=== PATIENT | male | born 1950 | race Caucasian/White ===

== ENCOUNTER 2017-01-26 08:56 | Observation (INO) | payer MEDICARE, BC ==
[~2017-01-26] VITALS: Ht 175.3 cm; Wt 108.5 kg
--- NOTE | ~2017-01-26 | CATH ---
Cardiac Diagnostic Report Demographics Patient Name SHARRI Jang Gender Male Date of 1950 Age 67 year(s) Patient Number [id number] Date of Study 01/26/2017 Visit Number [id number] Room Number 429 Corporate ID Ht 175.26 cm Wt 106.59 kg Accession Number [id number] BSA 2.21 m Referring Patrick BALBUENA Primary Physician Physician Chato Leonardo MD Performing Patrick BALBUENA Secondary Physician Physician Chato Diagnostic Patrick BALBUENA Assisting Physician Physician Chato Interventional Patrick BALBUENA Physician Group Work Program Director Physician Chato Findings and Conclusions Diagnostic Findings and Conclusion Minimal non-obstructive coronary artery disease. Normal LVEDP. Diagnostic Recommendations Evaluate for noncardiac etiology of chest pain. Procedure Description The patient was brought to the diagnostic cardiac catheterization laboratory in the fasting, non-sedated state. Informed consent was obtained in the written and verbal form after the risks and benefits were explained. The patient had no further questions and agreed to proceed. The planned puncture-incision site(s) were clipped and prepped with ChloraPrep and draped in the usual sterile manner. Conscious sedation, supplemental oxygen, and pain control medications were delivered by a registered nurse under physician guidance. Surface ECG rhythm, blood pressure measurement, and pulse oximetry were monitored throughout the procedure. Arterial access. The right radial access site was infiltrated with lidocaine. The vessel was entered with the Seldinger technique. A 6F sheath was advanced into the vessel and used for catheter placement. Selective left coronary angiography. A TIG catheter was advanced into the left coronary vessel ostium under Fluoroscopic guidance. Contrast was injected by hand. Images were obtained in multiple projections. Selective right coronary angiography. A TIG catheter was advanced into the right coronary vessel ostium under fluoroscopic guidance. Contrast was injected by hand. Images were obtained in multiple projections. Left heart catheterization with ventriculography. An angled pigtail catheter was advanced across the aortic valve to the left ventricle under fluoroscopic guidance. Resting hemodynamics were obtained. With the catheter at the left ventricular apex, contrast was injected. Images were obtained in AVILES projection. Post-ventriculography LV pressure was obtained. The catheter was gradually withdrawn into the aorta with continuous pressure recording. Hemostasis: The sheath was removed and a TR Band was placed. Hemostasis was achieved. The patient was transferred to the PCU nursing floor via cart accompanied by a nurse. The patient left the laboratory in stable condition. Procedure Procedure Type Diagnostic procedure:Ventriculogram:, Left, Angiography:, Coronary Angios /[facility] [place] Indications: Chest pain. The procedure was explained in detail to the patient. Risks, complications and alternative treatments were reviewed. Written consent was obtained. Medications Reviewed with Patient prior to Procedure. Complications: No Complication. Angiographic Findings Dominance: Right Cardiac Arteries and Lesion Findings LMCA: Normal (0% Stenosis). LAD: Abnormal. Lesion on Mid LAD: 30% stenosis . LCx: Normal (0% Stenosis). RCA: Normal (0% Stenosis). Coronary Tree Procedure Data Procedure Date Date: 01/26/2017Start: 12:21 PMEnd: 12:45 PM Entry Locations - Percutaneous access was performed through the Right Radial artery (Primary location). A 6 Fr sheath was inserted. Hemostasis was successfully obtained using a TR band. Procedure Medications Order and Administration + + +-------+--------+ !Time !Medication !Dosage !Route ! + + +-------+--------+ !01/26/2017 !Versed !2 mg !I.V. ! !12:04 PM ! ! ! ! + + +-------+--------+ !01/26/2017 !Fentanyl !25 mcg !I.V. ! !12:04 PM ! ! ! ! + + +-------+--------+ !01/26/2017 !Sodium Chloride !10 ml !I.V. ! !12:04 PM ! ! ! ! + + +-------+--------+ !01/26/2017 !Oxygen !2 l/min!NC ! !12:06 PM ! ! ! ! + + +-------+--------+ !01/26/2017 !Fentanyl !25 mcg !I.V. ! !12:20 PM ! ! ! ! + + +-------+--------+ !01/26/2017 !Versed !1 mg !I.V. ! !12:22 PM ! ! ! ! + + +-------+--------+ !01/26/2017 !SF Radial Cocktail: 200mcg Nitro, 2.5 mg ! !I.A. ! !12:23 PM !Verapamil, 5000u Heparin ! ! ! + + +-------+--------+ Devices Used - A6 Fr6F TIG CATHETERwas used for:BilateralCoronary Angios. - A6 FrCATH 6FR PIG 145 110CM CATHETERwas used for:LeftsideLV Pressures. Contrast Material - Isovue 14822 ml Fluoroscopy Time: Diagnostic: 1:48 minutes. Total: 1:48 minutes. Fluoroscopy Dose: Diagnostic: 651 mGy. Total: 651 mGy. Estimated Blood Loss: 6 ml. Medical History Allergies - No known allergies. Risk Factors The patient risk factors include:treated hypertension, last creatinine: 1.1 mg/dl and creatinine clearance: 96.9 ml/min. Admission Data Admission Date: 01/26/2017 Admission Time: 10:45 AM Insurance Payors: Medicare. LVA Segment Contractility 1 - Normal 3 - Mild 5 - Severe 7 - Dyskinesis hypokinesis hypokinesis 2 - 4 - Moderate 6 - Akinesis 8 - Aneurysm Hypokinesis hypokinesis Hemodynamics Condition: Rest O2 Consumption: Estimated: 247.96Heart Rate: 60 bpm Pressures (mmHg) +-----+ + !Site !Pressure ! +-----+ + !AO !91/56 (71) ! +-----+ + !LV !103/1 ,3 ! +-----+ + !AO !106/59 (80) ! +-----+ + !LV !100/0 ,12 ! +-----+ + Valve Gradients and Areas + +---------+---------+---------+ +---------+ + !Valve !Peak !Mean !Area !Index !Flow !Source ! + +---------+---------+---------+ +---------+ + !Aortic !0 !0 ! ! ! ! ! + +---------+---------+---------+ +---------+ + !Aortic !0 !0 ! ! ! ! ! + +---------+---------+---------+ +---------+ + Shunts Oxygen Values O2 Capacity 193.12 O2 Consumption 247.96 Signatures
--- NOTE | ~2017-01-26 | ECH ---
Transthoracic Echocardiography Report (TTE) Demographics Patient Name CHRISTOPHE HARRELL Date of Study 01/26/2017 Patient Number [id number] Visit Number [id number] Date of 1950 Room Number 429 Accession Number [id number] Gender Male Age 67 year(s) Referring Vj Jey Scientologist Miguelina Chang RUST Physician Physician Interpreting Eli Li MD Corporate Intern Physician Supervising Ordering Physician Patrick Reis MD/P Nurse Stress Car Supervisor Conclusions Summary Technically adequate exam. The estimated left ventricular ejection fraction is 60-65%. No significant valvular abnormalities. Procedure Type of Study TTE procedure:Echo Complete SF. Procedure Date Date: 01/26/2017 Start: 03:53 PM Technical Quality: Good visualization Indications:Acute PA, Chest pain and Abnormal troponin. Appropriate Use Criteria: 9 Height: 69 inches Weight: 235 pounds BSA: 2.21 m Rhythm: Within normal limits HR: 49 bpm BP: 123/82 mmHg Allergies - No known allergies. M-Mode/2D Measurements LV Diastolic Dimension: 5.09 cm LV Systolic Dimension: 4.03 cm LV Septum Diastolic: 1.14 cm LV PW Diastolic: 1.03 cm AO Root Dimension: 3.13 cm Cardiac Output: 2.15 l/min LA Dimension: 3.7 cm Cardiac Index: 0.97 l/min*m RV Diastolic Dimension: 4.18 cm LA volume index: 30 ml/m LVOT: 2.01 cm LVOT VTI: 13.81 cm RV Base: 4.69 cm LV Stroke volume: 43.8 ml RV Mid: 3.7 cm LV Stroke volume index: 19.82 ml/m RV Length: 8.2 cm TAPSE: 2 cm TDI-S': 12 cm/s Doppler Measurements AV Peak Velocity: 1 m/s MV Peak E-Wave: 0.5 m/s AV Peak Gradient: 4 mmHg MV Peak A-Wave: 0.48 m/s AV Mean Gradient: 1.71 mmHg MV E/A Ratio: 1.04 LVOT Peak Velocity: 0.56 m/s MV P1/2t: 103.7 msec AV Area (Continuity):2.25 cm MV Deceleration Time: 393.7 msec TR Velocity:2.57 m/s MV Area (PHT): 2.12 cm TR Gradient:26.52 mmHg RA Area: 13.22 cm Findings Left Ventricle The left ventricle is normal in size . Diastolic assessment reveals normal relaxation. Right Ventricle Normal right ventricle structure and function. Left Atrium Normal left atrial size. Right Atrium Normal right atrial size. Mitral Valve Normal mitral valve structure and function. Trivial mitral regurgitation by color Doppler. Aortic Valve Normal aortic valve structure and function. There is trivial aortic regurgitation by color Doppler. Tricuspid Valve Normal tricuspid valve structure and function. Trivial tricuspid regurgitation by color Doppler. Pulmonic Valve Normal pulmonic valve structure and function. Pericardial Effusion No evidence of pericardial effusion. Miscellaneous Visualized portions of the aortic root and ascending aorta appear normal in size. Pleural Effusion No evidence of pleural effusion. Signature
[~2017-01-26 08:56] MED LIST: ADULT LOW DOSE81 MG PO; AMOXIL-DPS500 MG PO; BENZONATATE200 MG PO; FLAGYL500 MG PO; HYDRODIURIL-DPS25 MG PO; PRILOSEC DPS20 MG PO; QUESTRAN DPS4 GM PO; SAW PALMETTO160 MG PO; TYLENOL DPS325 MG PO; VITAMIN C1000 MG PO; XARELTO20 MG PO
[2017-01-28] MEDS ORDERED: BENZONATATE200 MG PO (17:18)
[2017-01-28] MEDS ORDERED: VITAMIN C500 M1 PO (17:19)
[2017-01-28] MEDS ORDERED: XARELTO20 MG PO (17:19)
[2017-01-28] MEDS ORDERED: HYDROCHLOROTHIA25 MG PO (17:19)
[2017-01-28] MEDS ORDERED: ASPIR 8181 MG PO (17:19)
[2017-01-28] MEDS ORDERED: VITAMIN B-12500 MCG PO (17:20)
[2017-01-28] MEDS ORDERED: SAW PALMETTO450 MG PO (17:21)
[2017-01-28] MEDS ORDERED: NAPROSYN DPS500 MG PO (17:21)
[2017-01-28] MEDS ORDERED: OMEGA-3 DPS1000 MG PO (17:21)
--- NOTE | 2017-01-29 08:36 | DS ---
ADMIT: 01/26/2017 RM/LOC: 429 [facility] MR#: [id number] [facility]#: [id number] [id number] [place], [place] [address] CHRISTOPHE HARRELL [address] [place] [address] Discharge Summary SEX: M AGE: 67 : 1950 ADMISSION DATE: 01/26/2017 DISCHARGE DATE: 01/27/2017 CONSULTATIONS: Cardiology. PROCEDURES: He had a left heart catheterization on the . FINAL DIAGNOSES: 1. Chest pain, noncardiac. 2. Nonobstructive coronary artery disease. 3. History of DVT (deep venous thrombosis), on chronic anticoagulation. 4. Bradycardia. 5. Obstructive sleep apnea, poorly controlled. REASON FOR ADMISSION: The patient is a 59-year-old gentleman who presents with substernal chest pain. Mildly elevated troponin. He went for left heart catheterization. HOSPITAL COURSE: The patient went for left heart catheterization. Overall negative. Other workup was negative. He had resolution of his chest pain without any further recurrence. He was quite bradycardic during the hospitalization. He will be discharged on a Zio Patch per Cardiology. Otherwise, he will follow up with Dr. Zabala in 10-14 days regarding this as well. He will be placed back on his Xarelto. Maintained on his home antihypertensives. I had a long discussion regarding the goals of weight loss to help control sleep apnea and he needs to refocus his efforts on wearing his CPAP. Patient understanding. For discharge medications, please see discharge MAR, which I fully reviewed. They will essentially be his home medications, unchanged. Ho Soler MD/ lui JOB #: [id number] CC: Roe Zabala MD, Attending Physician Roe Zabala MD, Family Physician
--- NOTE | 2017-01-29 13:41 | CO ---
ADMIT: 01/26/2017 RM/LOC: 429 [facility] MR#: [id number] [facility]#: [id number] [address] [address] CHRISTOPHE HARRELL [address] [place] [address] Consultation SEX: M AGE: 67 : 1950 DATE OF CONSULTATION: 01/26/2017 ATTENDING PHYSICIAN: Roe Zabala CONSULTING PHYSICIAN: Chato Nguyen MD REASON FOR CONSULT: Chest pain, mildly elevated troponin. HISTORY OF PRESENT ILLNESS: The patient presents to the ER with an acute onset of chest pain at around 0745 hours this morning. The chest pain was not present when he woke up. His initial chest pain episode lasted about 5 to 10 minutes. He rated the severity as about 10/10 and described the pain as tightness that radiated to the right side of his neck. The pain was severe enough to drive the patient to his knees. Associated symptoms included diaphoresis, numbness, and tingling in his left arm. He denies shortness of breath and nausea with his chest pain episode. After 5 to 10 minutes of the patient sitting down, the chest pain resolved. He stood back up, and the chest pain started up again. At this point, he decided to take a dose of his 's nitroglycerin. The nitroglycerin did help for a short period of time, but the chest pain came back. At this time, the patient took a second nitroglycerin and came into the ER. After the paramedics showed up and as well as in the ER, the patient has had multiple short episodes of chest pain lasting about 30 seconds in duration similar to the chest pain that he experienced with his first episode. While seeing the patient in the ER room,the patient describes his chest pain as a 3/10 currently. He did have one episode of chest pain while I was in the room, which occurred while he was moving his position. He says this chest pain can be positional at times. The patient's cardiac history reveals one prior episode of chest pain back in 2006 in which he did a Lexiscan which was equivocal, so a catheterization was performed that revealed no evidence of significant coronary artery disease.Since this chest pain episode in 2006, he has not had any chest pain or shortness of breath with exertion. Cardiovascular risk factors include hypertension. There is a negative history for diabetes, cholesterol, or smoking history. PAST MEDICAL HISTORY: Significant illnesses: Hypertension. MEDICATIONS: 1. Aspirin 81 mg p.o. daily. 2. Lisinopril/hydrochlorothiazide 10 mg/12.5 mg p.o. daily. ALLERGIES: NO KNOWN MEDICAL ALLERGIES. FAMILY HISTORY: Dad had brain cancer. Maternal grandfather, stroke. No history of heart disease. SOCIAL HISTORY: The patient does not follow a special diet. He does report 1 to 2 beers per week. No history of drug use or abuse. He does report caffeine use and 2 cups of coffee per day. Occupation, retired. Marital status, . ADMIT: 01/26/2017 RM/LOC: 429 [facility] MR#: [id number] [address] [address] CHRISTOPHE HARRELL [address] [place] [address] Consultation SEX: M AGE: 67 : 1950 REVIEW OF SYSTEMS: GENERAL: Denies fatigue, fever, chills, sweats, rash, or weight loss. EYES: Denies double vision, blurred vision, cataracts, or glaucoma. ENT: Denies hearing loss or problems with nose, mouth or throat. PULMONARY: Denies cough, sputum production, asthma, emphysema or bronchitis. Denies snoring loudly, wakefulness at night, or fatigue upon awakening. GASTROINTESTINAL: Denies heartburn or difficulty swallowing. No change in bowel habits. Denies dark or bloody stools. No history of ulcers, hiatal hernia, or gallbladder or liver disease. GENITOURINARY: Denies dysuria, hematuria, nocturia, urinary tract infection, or kidney stones. Denies history of renal insufficiency or failure. MUSCULOSKELETAL: Denies history of arthritis or gout. Denies muscle or joint pains. ENDOCRINE: Denies history of thyroid dysfunction or diabetes. HEMATOLOGIC: Denies history of anemia, easy bruising, or cancer. NEUROLOGIC: Denies chronic headaches, dizziness, syncope, stroke, seizures or numbness or tingling. PSYCHIATRIC: Denies history of mental illness or feelings of depression. PHYSICAL EXAMINATION: GENERAL: Alert and oriented x3, in no acute distress. HEENT: Normocephalic, atraumatic. No bruits. Absent JVD. HEART: Regular rate and rhythm. No murmurs, clicks, rubs, or gallops. LUNGS: Clear to auscultation. ABDOMEN: Soft, nontender. Positive bowel sounds. EXTREMITIES: No edema. NEURO: Intact. PSYCH: Normal. LABORATORY DATA: Sodium 144, potassium 3.3, chloride 108, CO2 of 26, BUN 14, ADMIT: 01/26/2017 RM/LOC: 429 [facility] MR#: [id number] [address] [address] CHRISTOPHE HARRELL [address] [place] [address] Consultation SEX: M AGE: 67 : 1950 creatinine 1.1. Blood glucose 118. CK-MB less than 0.5. Troponin 0.055. CRP 7.62. White blood cell count 5.6, hemoglobin 14.2. Chest x-ray, no acute findings. EKG, grade 1 AV block. No acute changes. ASSESSMENT AND PLAN: 1. Unstable angina, elevated troponin. Continued paroxysmal chest pain. Despite nitroglycerin use, he has continued to have recurrent chest pain. High risk for AL with recurrent symptoms and risk factors. We will proceed with coronary angiography. The risks were discussed with the patient including but not limited to stroke, AL, bleeding, renal failure, and rarely . He agrees to proceed. 2. Hypertension. 3. Deep venous thrombosis. Three-year history with Xarelto. 4. Hypercoagulable state on Xarelto. BRISEIDA Saba Student / Chato Nguyen MD / daryl JOB #: [id number] CC: Roe Zabala, Attending Physician Roe Zabala, Family Physician
--- NOTE | 2017-02-01 10:46 | HP ---
ADMIT: 01/26/2017 RM/LOC: 429 [facility] MR#: [id number] [facility]#: [id number] [address] [address] JJ SINGH [address] [place] [address] History and Physical SEX: M AGE: 67 : 1950 DATE OF SERVICE: CHIEF COMPLAINT: Chest pain. HISTORY OF PRESENT ILLNESS: Jj Singh is a very nice 67-year-old man, presented to the ER with sudden onset of persistent chest pain while he was feeding his cat. The pain has actually been getting worse as time goes on. He took one of his 's nitroglycerin, which improved his symptoms nicely. The patient in the ER was placed on nitroglycerin paste. He continued to have chest pain. His EKG is not remarkable for STEMI and has no ST-segment changes. He does have a positive troponin. Cardiology is at the bedside. Plan for left heart catheterization. He otherwise is unchanged to his medical history. He has no nausea or vomiting. He had no gripping chest pain, but this was more of a sudden onset of pressure in his left chest. PAST MEDICAL HISTORY: 1. History of coronary artery disease. 2. Antithrombin III deficiency. 3. Chronic back pain. 4. Hypertension. 5. History of DVT. 6. Obstructive sleep apnea. 7. Spinal stenosis. ALLERGIES: HYDROCODONE. MEDICATIONS: 1. Vitamin C. 2. Hydrochlorothiazide. 3. Lyrica. 4. Xarelto. FAMILY HISTORY: Mother and father . SOCIAL HISTORY: Does not smoke. Does not drink. He does drink alcohol. REVIEW OF SYSTEMS: Complete review of systems reviewed as per HPI. PHYSICAL EXAMINATION: VITAL SIGNS: Blood pressure 142/71, pulse 57, respiratory rate is 18, temperature is 97.8, he is on room air. GENERAL: He is alert and oriented x3. No acute distress. HEENT: Normocephalic and atraumatic. . Extraocular movements intact. Pupils equally round and responsive to light. No nasal discharge. NECK: Supple. HEART: Regular rhythm and rate. LUNGS: Clear to auscultation bilaterally. ABDOMEN: Soft, nontender, and nondistended. EXTREMITIES: No clubbing, cyanosis, or edema. ADMIT: 01/26/2017 RM/LOC: 429 [facility] MR#: [id number] [id number] [place], [place] [address] JJ SINGH Suhail [address] [place] [address] History and Physical SEX: M AGE: 67 : 1950 LABORATORY DATA: White blood cells are 5.6, hemoglobin is 14.2, platelets are 168. Sodium 144, potassium 3.3, chloride is 108, bicarb 26, BUN is 14, creatinine is 1.1, glucose 118, calcium is 8.8, troponin is 0.055. INR is 1.26. Overall, no suggestion of findings on chest x-ray. ASSESSMENT AND PLAN: 1. Unstable angina. 2. Positive troponin. 3. History of coagulopathy. 4. Chronic anticoagulation. 5. Hyperglycemia. We will go ahead and admit him to inpatient status. Dr. Chato Nguyen will take him for a diagnostic left heart catheterization. We will follow his laboratory values and adjust accordingly based on the result of left heart catheterization. I discussed the plan with the patient, who expressed understanding, was in agreement, and had no further questions. Roe Zabala MD/ daryl JOB #: [id number] CC: Roe Zabala, Attending Physician Roe Zabala, Family Physician
--- NOTE | 2017-02-17 20:21 | ER ---
ADMIT: 01/26/2017 RM/LOC: 429 [facility] MR#: [id number] [address] [address] FAYEMARY CHRISTOPHE Jang [address] [place] [address] Emergency Room Report SEX: M AGE: 67 : 1950 DATE: 01/26/2017 ADDENDUM: A 67-year-old male came in with some chest pain that began suddenly when he was feeding his cat. He describes it as pressure on the side of his chest and is severe at onset, but is currently gone. He had associated sweating with this and was relieved with nitroglycerin. He does have a history of hypertension and DVT but no personal cardiac history. He does take Xarelto for his DVT. PHYSICAL EXAMINATION: Unremarkable. He was comfortable in no distress and he was bradycardic. EMERGENCY DEPARTMENT COURSE: EKG showed sinus bradycardia but otherwise unremarkable. He did have a troponin elevated at 0.055. He will be admitted to Dr. Zabala service and Cardiology was notified. He was diagnosed with non- ST elevation TX, and elevated troponin, chest pain, and hypokalemia. Nuno Banks MD/ daryl JOB #: [id number] CC: Roe Zabala MD, Attending Physician Roe Zabala MD, Family Physician
== END 2017-01-27 11:05 | disposition home or self-care (01) ==
LOC: ER 08:56 → 4PCU 10:45
PROVIDERS: ADMIT Internal Medicine
PROC: 4A023N7 Measurement of Cardiac Sampling and Pressure, Left Heart, Percutaneous Approach (ICD-10-PCS; principal; 2017-01-26)
DX: R07.89 Other chest pain (principal); I25.110 Atherosclerotic heart disease of native coronary artery with unstable angina pectoris; I10 Essential (primary) hypertension; G47.33 Obstructive sleep apnea (adult) (pediatric); M48.00 Spinal stenosis, site unspecified; D68.59 Other primary thrombophilia; R73.9 Hyperglycemia, unspecified; Z86.718 Personal history of other venous thrombosis and embolism; Z88.5 Allergy status to narcotic agent; Z79.82 Long term (current) use of aspirin; Z79.899 Other long term (current) drug therapy; Z98.890 Other specified postprocedural states